=== PATIENT | male | born 1945 | race Two or more races ===

== ENCOUNTER → 2017-03-01 | Outpatient (CLI) | payer MEDICAID ==
[~2017-03-01] MED LIST: ASP81EC PO; ATOR10TA52 PO; FUROSEMIDE 40 MG/4 ML VIAL IV ONE; FUROSEMIDE 40 MG/4 ML VIAL ONE; GLIM2TAB PO; ISOS30TA17 PO; MET25T PO; NITR0.4S29 SL; POTASSIUM CHL 20 Meq TABLET PO ONE
[2017-03-01 15:00] VITALS: BP 156/100
[2017-03-01 15:30] VITALS: BP 170/111
== END | disposition home or self-care (01) ==
LOC: CHF HDHVI 14:48
PROVIDERS: ATTEND Internal Medicine Cardiovascular Disease
DX: I50.9 Heart failure, unspecified (principal)

== ENCOUNTER 2017-04-11 12:35 | Inpatient (IN) | payer MEDICAID ==
[~2017-04-11] VITALS: Ht 167.6 cm; Wt 72.9 kg
[~2017-04-11 12:35] MED LIST changes: -FUROSEMIDE 40 MG/4 ML VIAL IV ONE; -FUROSEMIDE 40 MG/4 ML VIAL ONE; -POTASSIUM CHL 20 Meq TABLET PO ONE
[2017-04-11 15:27] LABS: Basophils # (auto) 0 uL; Basophils % (auto) 0.5 % (0.0-2.0); Eosinophils # (auto) 0.1 uL; Eosinophils % (auto) 0.9 % (0.0-7.0); Hematocrit 47.2 % (41.0-53.0); Hemoglobin 15.3 g/dL (13.5-17.5); Lymphocytes # (auto) 1.5 uL; Lymphocytes % (auto) 23.5 % (10.0-50.0); Mean Corpuscular Hemoglobin 28.3 pg (28.0-32.0); Mean Corpuscular Hgb Conc. 32.4 g/dL (32.0-36.0); Mean Corpuscular Volume 87.2 fL (80.0-100.0); Mean Platelet Volume 8.9 fL (6.9-10.8); Monocytes # (auto) 0.6 uL; Monocytes % (auto) 9.4 % (0.0-12.0); Neutrophils # (auto) 4.3 uL; Neutrophils % (auto) 65.7 % (37.0-80.0); Nucleated Red Blood Cells % 0.4 %; Platelet Count (auto) 119 10^3/uL (140-450); Red Cell Distribution Width 17.2 % (11.8-14.3); White Blood Cell 6.5 10^3/uL (4.4-10.8)
[2017-04-11 15:55] LABS: Albumin 3.4 g/dL (3.4-5.0); BUN/Creatinine Ratio 23.7; Bilirubin, Total 1.9 mg/dL (0.2-1.0); Calcium 7.6 mg/dL (8.5-10.1); Potassium 3.7 mmol/L (3.5-5.1); Total Protein 7.8 g/dL (6.4-8.2)
[2017-04-11] MEDS ORDERED: MORPHINE SULF INJ 2 MG/ML SYRINGE 1ML IV PRN (16:45)
[2017-04-11] MEDS ORDERED: DEXTROSE (50%) 50ML SYRG IV PRN (16:45)
[2017-04-11] MEDS ORDERED: NITROGLYCERIN 0.4 MG SL TAB SL PRN (16:45)
[2017-04-11] MEDS ORDERED: FUROSEMIDE 40 MG/4 ML VIAL IV ONE (16:45)
[2017-04-11] MEDS ORDERED: POTASSIUM CHL 10 Meq TABLET PO ONE (16:45)
[2017-04-11] MEDS: ACCU-CHEK COMFORT CURVE STRIP VI SCH ×2 (18:53→21:26)
[2017-04-11] MEDS: InsuLIN REG 1unit/0.01ml Soln (100units/ml) SC SCH ×2 (18:54→21:25)
[2017-04-11 20:30] VITALS: BP 163/115
[2017-04-11] MEDS ORDERED: HYDR25TA35 PO (21:06)
[2017-04-11] MEDS ORDERED: LEVO50TA7 PO (21:06)
[2017-04-11] MEDS: ATORVASTATIN 20 MG TAB PO SCH (21:25)
[2017-04-11] MEDS: METOPROLOL TARTRATE 50 MG TAB PO SCH (21:25)
[2017-04-11] MEDS: hydrALAZINE HCL 25 MG TAB PO SCH (21:25)
[2017-04-11 21:33] LABS: Urine Bilirubin Negative (Negative); Urine Blood Negative /uL (Negative); Urine Color PINK (Yellow); Urine Glucose Normal (Normal); Urine Ketone Negative (Negative); Urine Mucus FEW (None Seen); Urine Nitrite Negative (Negative); Urine RBC <1 /hpf (0 - 3); Urine Squamous Epithelial Cell FEW /hpf (<5)
[2017-04-11 22:00] VITALS: BP 163/115
[2017-04-12 05:00] VITALS: BP 146/89
[2017-04-12 06:06] LABS: Basophils # (auto) 0 uL; Basophils % (auto) 0.7 % (0.0-2.0); Eosinophils # (auto) 0.1 uL; Eosinophils % (auto) 1.1 % (0.0-7.0); Hematocrit 46.1 % (41.0-53.0); Hemoglobin 15.2 g/dL (13.5-17.5); Lymphocytes # (auto) 1.6 uL; Lymphocytes % (auto) 24.7 % (10.0-50.0); Mean Corpuscular Hemoglobin 28.1 pg (28.0-32.0); Mean Corpuscular Volume 85.2 fL (80.0-100.0); Mean Platelet Volume 8.5 fL (6.9-10.8); Monocytes # (auto) 0.6 uL; Monocytes % (auto) 9.4 % (0.0-12.0); Neutrophils # (auto) 4.2 uL; Neutrophils % (auto) 64.1 % (37.0-80.0); Nucleated Red Blood Cells % 0.2 %; Platelet Count (auto) 123 10^3/uL (140-450); Red Cell Distribution Width 16.6 % (11.8-14.3); White Blood Cell 6.5 10^3/uL (4.4-10.8)
[2017-04-12 06:21] LABS: BUN/Creatinine Ratio 26.7; Calcium 8.7 mg/dL (8.5-10.1); Potassium 3.3 mmol/L (3.5-5.1)
[2017-04-12] MEDS: ACCU-CHEK COMFORT CURVE STRIP VI SCH ×4 (06:26→22:07)
[2017-04-12] MEDS: InsuLIN REG 1unit/0.01ml Soln (100units/ml) SC SCH ×4 (06:26→22:00)
[2017-04-12] MEDS: hydrALAZINE HCL 25 MG TAB PO SCH ×3 (06:26→22:07)
[2017-04-12] MEDS: LEVOTHYROXINE SODIUM 50 MCG TAB PO SCH (06:26)
[2017-04-12 08:00] VITALS: BP 146/89
[2017-04-12 08:40] VITALS: BP 128/78
[2017-04-12] MEDS: POTASSIUM CHL 10 Meq TABLET PO SCH (10:22)
[2017-04-12] MEDS: FUROSEMIDE 40 MG/4 ML VIAL IV SCH (10:22)
[2017-04-12] MEDS: ASPirin 81 mg TAB PO SCH (10:22)
[2017-04-12] MEDS: METOPROLOL TARTRATE 50 MG TAB PO SCH ×2 (10:23→22:07)
[2017-04-12 12:45] VITALS: BP 123/84
[2017-04-12] MEDS ORDERED: POTASSIUM CHL 20 Meq TABLET PO ONE (13:15)
[2017-04-12 17:42] VITALS: BP 127/77
[2017-04-12 22:00] VITALS: BP 124/89
[2017-04-12] MEDS: ATORVASTATIN 20 MG TAB PO SCH (22:07)
[2017-04-13 05:00] VITALS: BP 137/93
[2017-04-13] MEDS: LEVOTHYROXINE SODIUM 50 MCG TAB PO SCH (06:22)
[2017-04-13] MEDS: ACCU-CHEK COMFORT CURVE STRIP VI SCH ×2 (06:22→11:37)
[2017-04-13] MEDS: hydrALAZINE HCL 25 MG TAB PO SCH ×2 (06:22→14:00)
[2017-04-13] MEDS: InsuLIN REG 1unit/0.01ml Soln (100units/ml) SC SCH ×2 (06:22→11:37)
[2017-04-13 08:00] VITALS: BP 130/74
[2017-04-13 09:00] VITALS: BP 130/74
[2017-04-13] MEDS: FUROSEMIDE 40 MG/4 ML VIAL IV SCH (09:46)
[2017-04-13] MEDS: ASPirin 81 mg TAB PO SCH (09:46)
[2017-04-13] MEDS: POTASSIUM CHL 10 Meq TABLET PO SCH (09:47)
[2017-04-13] MEDS: METOPROLOL TARTRATE 50 MG TAB PO SCH (09:47)
[2017-04-13 12:30] VITALS: BP 115/68
[2017-04-13 13:34] VITALS: BP 130/74
== END 2017-04-13 15:18 | disposition home or self-care (01) | DRG 194 ==
LOC: ER 12:35 → TELE 12:36 → TELE-WESTW 20:22
PROVIDERS: ADMIT Internal Medicine; ATTEND Internal Medicine
DX: I13.0 Hypertensive heart and chronic kidney disease with heart failure and stage 1 through stage 4 chronic kidney disease, or unspecified chronic kidney disease (principal); E11.22 Type 2 diabetes mellitus with diabetic chronic kidney disease; I48.3 Typical atrial flutter; I50.43 Acute on chronic combined systolic (congestive) and diastolic (congestive) heart failure; N18.3 Chronic kidney disease, stage 3 (moderate); I25.10 Atherosclerotic heart disease of native coronary artery without angina pectoris; E78.5 Hyperlipidemia, unspecified; E03.9 Hypothyroidism, unspecified; Z95.1 Presence of aortocoronary bypass graft; Z88.0 Allergy status to penicillin
CPT/HCPCS: 36415; 71020; 80048; 80053; 81001; 82962; 83036; 84443; 84484; 85025; 93005; 93306; 96374; J1815

== ENCOUNTER 2017-07-11 09:51 | Inpatient (IN) | payer MEDICAID ==
[~2017-07-11] VITALS: Ht 165.1 cm; Wt 94.0 kg
[~2017-07-11 09:51] MED LIST changes: +HYDR25TA35 PO; -ISOS30TA17 PO; +LEVO50TA7 PO; -NITR0.4S29 SL
[2017-07-11 10:24] LABS: Basophils # (auto) 0.1 uL; Basophils % (auto) 1.2 % (0.0-2.0); Eosinophils # (auto) 0.1 uL; Eosinophils % (auto) 1.7 % (0.0-7.0); Hematocrit 40.7 % (41.0-53.0); Hemoglobin 13.6 g/dL (13.5-17.5); Lymphocytes # (auto) 1.2 uL; Lymphocytes % (auto) 21.2 % (10.0-50.0); Mean Corpuscular Hemoglobin 29.6 pg (28.0-32.0); Mean Corpuscular Hgb Conc. 33.5 g/dL (32.0-36.0); Mean Corpuscular Volume 88.2 fL (80.0-100.0); Monocytes # (auto) 0.5 uL; Monocytes % (auto) 9.4 % (0.0-12.0); Neutrophils # (auto) 3.9 uL; Neutrophils % (auto) 66.5 % (37.0-80.0); Nucleated Red Blood Cells % 0.1 %; Platelet Count (auto) 120 10^3/uL (140-450); Red Blood Cells 4.62 10^6/uL (4.5-5.90); White Blood Cell 5.8 10^3/uL (4.4-10.8)
[2017-07-11 10:39] LABS: BUN/Creatinine Ratio 27.8; Bilirubin, Total 1.8 mg/dL (0.2-1.0); Calcium 8.9 mg/dL (8.5-10.1); Potassium 3.6 mmol/L (3.5-5.1); Total Protein 7.1 g/dL (6.4-8.2)
[2017-07-11] MEDS ORDERED: SODIUM CHLORIDE 0.9% 500 ML IVB ONE (11:34)
[2017-07-11] MEDS ORDERED: MORPHINE SULFATE 4 MG/ML SYR/VIAL IV ONE (11:45)
[2017-07-11] MEDS ORDERED: ONDANSETRON HCL 4 MG/2 ML VIAL IV ONE (11:45)
[2017-07-11] MEDS ORDERED: DOCUSATE SOD 100 MG CAP PO PRN (13:30)
[2017-07-11] MEDS ORDERED: TEMAZEPAM 15 MG CAP PO PRN (13:30)
[2017-07-11] MEDS ORDERED: cloNIDine HCL 0.1 MG TAB PO PRN (13:30)
[2017-07-11] MEDS ORDERED: ACETAMINOPHEN 325 MG TAB PO PRN (13:30)
[2017-07-11] MEDS ORDERED: ONDANSETRON HCL 4 MG/2 ML VIAL IV PRN (13:30)
[2017-07-11] MEDS ORDERED: HYDROcodone-ACET 5/325MG TAB PO PRN (13:30)
[2017-07-11] MEDS ORDERED: MORPHINE SULFATE 10 MG/ML INJ 1ML SDV IV PRN (13:30)
[2017-07-11] MEDS ORDERED: IOHEXOL 300 MG/ML 100ML BOTTLE IJ ONE (13:50)
[2017-07-11] MEDS: FAMOTIDINE 20 MG TAB PO SCH ×2 (14:08→22:22)
[2017-07-11] MEDS: SODIUM CHLORIDE 0.9% 1,000 ML IV SCH (14:08)
[2017-07-11 14:21] LABS: INR 1.11 (0.9-1.15); Prothrombin Time 12.1 sec (9.37-12.3)
[2017-07-11] MEDS: Boost Glucose Control 8 Ounces PO SCH (18:00)
[2017-07-11 20:04] VITALS: BP 153/76
[2017-07-11 22:00] VITALS: BP 141/74
[2017-07-11] MEDS ORDERED: ATORVASTATIN 20 MG TAB PO SCH (22:00)
[2017-07-12 05:00] VITALS: BP 156/88
[2017-07-12 05:38] LABS: Basophils # (auto) 0 uL; Basophils % (auto) 0.6 % (0.0-2.0); Eosinophils # (auto) 0 uL; Eosinophils % (auto) 0.8 % (0.0-7.0); Hemoglobin 13.4 g/dL (13.5-17.5); Lymphocytes # (auto) 0.8 uL; Lymphocytes % (auto) 15.4 % (10.0-50.0); Mean Corpuscular Hemoglobin 29.7 pg (28.0-32.0); Mean Corpuscular Hgb Conc. 33.5 g/dL (32.0-36.0); Mean Corpuscular Volume 88.7 fL (80.0-100.0); Monocytes # (auto) 0.5 uL; Neutrophils % (auto) 73.2 % (37.0-80.0); Nucleated Red Blood Cells % 0.1 %; Platelet Count (auto) 110 10^3/uL (140-450); Red Blood Cells 4.51 10^6/uL (4.5-5.90); Red Cell Distribution Width 14.7 % (11.8-14.3); White Blood Cell 5.4 10^3/uL (4.4-10.8)
[2017-07-12 06:02] LABS: Albumin 2.7 g/dL (3.4-5.0); BUN/Creatinine Ratio 22.6; Bilirubin, Total 1.5 mg/dL (0.2-1.0); Calcium 8.5 mg/dL (8.5-10.1); Potassium 3.8 mmol/L (3.5-5.1); Total Protein 6.6 g/dL (6.4-8.2)
[2017-07-12 08:00] VITALS: BP 144/85
[2017-07-12 09:00] VITALS: BP 144/85
[2017-07-12] MEDS ORDERED: MULTIPLE VITAMIN TAB PO SCH (10:00)
[2017-07-12] MEDS: SODIUM CHLORIDE 0.9% 1,000 ML IV SCH (10:03)
[2017-07-12] MEDS: Boost Glucose Control 8 Ounces PO SCH ×3 (10:03→18:00)
[2017-07-12] MEDS: FAMOTIDINE 20 MG TAB PO SCH (10:04)
[2017-07-12 13:00] VITALS: BP 158/82
[2017-07-12 15:38] VITALS: BP 158/82
[2017-07-12 17:00] VITALS: BP 140/83
== END 2017-07-12 20:10 | disposition hospice, home (50) | DRG 281 ==
LOC: ER 09:51 → EDBD 09:51 → EDUNIT# 09:52 → OVERFLOW 09:52 → WEST WING 16:26
PROVIDERS: ADMIT Internal Medicine; ATTEND Internal Medicine
DX: C25.9 Malignant neoplasm of pancreas, unspecified (principal); E44.0 Moderate protein-calorie malnutrition; C78.7 Secondary malignant neoplasm of liver and intrahepatic bile duct; R65.10 Systemic inflammatory response syndrome (SIRS) of non-infectious origin without acute organ dysfunction; D69.6 Thrombocytopenia, unspecified; I11.9 Hypertensive heart disease without heart failure; J84.10 Pulmonary fibrosis, unspecified; E11.9 Type 2 diabetes mellitus without complications; D63.8 Anemia in other chronic diseases classified elsewhere; E78.5 Hyperlipidemia, unspecified; I25.10 Atherosclerotic heart disease of native coronary artery without angina pectoris; Z51.5 Encounter for palliative care; R91.8 Other nonspecific abnormal finding of lung field; I70.0 Atherosclerosis of aorta; R94.5 Abnormal results of liver function studies; Z68.34 Body mass index [BMI] 34.0-34.9, adult; Z95.1 Presence of aortocoronary bypass graft; Z88.8 Allergy status to other drugs, medicaments and biological substances; I25.2 Old myocardial infarction; R16.1 Splenomegaly, not elsewhere classified
CPT/HCPCS: 36415; 74176; 74177; 80053; 82150; 83036; 83690; 83735; 85025; 85610; 86301; 93005; 94761; 96361; 96374; 96375; J2405